=== PATIENT | male | born 1975 | race Caucasian/White ===

== ENCOUNTER 2018-05-06 07:33 | Day surgery (SDC) | payer OTHER ==
[2018-05-06] MEDS ORDERED: MIDAZOLAM 1 MG/ML 2 ML INJ (11:02)
[2018-05-06] MEDS: COCAINE 4% 4 ML TOP (11:18)
[2018-05-06] MEDS: LIDOCAINE 1%/EPI (1:100,000) (MDV) 20 ML INJ (11:18)
[2018-05-06] MEDS: BACITRACIN/POLYMYXIN 28.35 GM OINT TOP (11:25)
[2018-05-06] MEDS ORDERED: ONDANSETRON 4 MG INJ (12:30)
[2018-05-06] MEDS ORDERED: LIDOCAINE 2% (SDV) 5 ML INJ (12:30)
[2018-05-06] MEDS ORDERED: ROCURONIUM 50 MG INJ (12:30)
[2018-05-06] MEDS ORDERED: PROPOFOL 20 ML (12:30)
[2018-05-06] MEDS ORDERED: CEFAZOLIN 1 GM INJ (12:36)
[2018-05-06] MEDS ORDERED: ONDANSETRON 4 MG INJ IV (13:00)
[2018-05-06] MEDS ORDERED: METOCLOPRAMIDE 10 MG INJ IV (13:00)
[2018-05-06] MEDS ORDERED: HYDROmorphONE 1 MG/5 ML IV SYRINGE IV ×2 (13:00)
[2018-05-06] MEDS ORDERED: MEPERIDINE 25 MG INJ IV (13:00)
[2018-05-06] MEDS ORDERED: DIPHENHYDRAMINE 50 MG INJ IV (13:00)
[2018-05-06] MEDS ORDERED: FENTAnyl 50 MCG/ML VIAL IV (13:00)
== END 2018-05-06 14:53 | disposition home or self-care (01) ==
LOC: SDS 07:33
DX: J34.3 Hypertrophy of nasal turbinates (principal); J34.2 Deviated nasal septum; J34.89 Other specified disorders of nose and nasal sinuses; E66.9 Obesity, unspecified; Z68.35 Body mass index [BMI] 35.0-35.9, adult
CPT/HCPCS: 30140; 88300